=== PATIENT | male | born 1975 | race African-American/Black ===

== ENCOUNTER 2017-03-18 17:05 | Emergency (ER) | payer OTHER ==
[2017-03-18 18:01] LABS: CHLORIDE,CL 111 mmol/L (98-110); SODIUM,NA 144 mmol/L (136-146)
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
[2017-03-18 19:03] VITALS: BP 119/82
--- NOTE | 2017-03-21 11:42 | CR ---
EXAM DATE: 03/18/17 PATIENT'S AGE: 41 Patient: VISHAL ZAZUETA Facility: [place], [place] Site . Site : 1975 Study: XRay Shoulder [id number]/21/2017 6:13:38 PM Ordering Physician: Doctor Baker Final Report: HISTORY: Pain. FINDINGS: Three views of the left shoulder demonstrates normal alignment of the AC joint and glenohumeral joint. No fracture or dislocation is seen. No soft tissue calcification is identified. IMPRESSION: No next bony abnormality within the left shoulder. Dictated by Alia Griffin MD @ 03/18/2017 6:45:09 PM Dictated by: Alia Griffin MD @ 03/18/2017 18:45:15 (Electronic Signature) Report Signed by Proxy. [email or web address]
--- NOTE | 2017-03-21 11:43 | CR ---
EXAM DATE: 03/18/17 PATIENT'S AGE: 41 Patient: VISHAL ZAZUETA Facility: [place], [place] Site . Site : 1975 Study: XRay Chest [id number]/21/2017 6:14:01 PM Ordering Physician: Doctor Baker Final Report: INDICATION: pain, left side pain TECHNIQUE: Chest 2 views. COMPARISON: None. FINDINGS: Cardiovascular and mediastinum: Heart size and vasculature are normal in caliber and appearance. Mediastinum is within normal limits. Lungs and pleural spaces: Lungs are clear. No sign of infiltrate or mass. No sign of pleural effusion. No pneumothorax. Bones and soft tissues: No significant findings. IMPRESSION: Unremarkable chest. Dictated by: Seth Moreno MD @ 03/18/2017 18:47:21 (Electronic Signature) Report Signed by Proxy. [facility] PSYCHIATRIC CENTERMatt
== END 2017-03-18 18:39 ==
LOC: MW.ED 17:05
DX: S22.32XA Fracture of one rib, left side, initial encounter for closed fracture (principal); F10.129 Alcohol abuse with intoxication, unspecified; F17.210 Nicotine dependence, cigarettes, uncomplicated; X58.XXXA Exposure to other specified factors, initial encounter
CPT/HCPCS: 36415; 71020; 73030; 80053; 84484; 85025; 93005; 99285; G0480; 99282